=== PATIENT | male | born 1970 | race Caucasian/White ===

== ENCOUNTER 2020-09-04 10:47 | Observation (INO) | payer BC ==
[~2020-09-04] VITALS: Ht 180.3 cm; Wt 120.0 kg
[~2020-09-04 10:47] MED LIST: ALEVE 220MG220 MG PO; HYZAAR 25 MG-101 TAB PO; PRILOSEC 20MG20 MG PO; TOPROL XL 25MG25 MG PO; ZOCOR 40MG40 MG PO
[2020-09-04 11:41] LABS: BASO % 0.3 % (0.0-2.0); EOS # 0.1 (0.0-0.7); EOS % 0.7 % (0-4.0); GRAN # 4.9 (1.4-6.5); GRAN % 65.6 % (42.2-75.2); HEMATOCRIT 44.5 % (42.0-52.0); HEMOGLOBIN 15.6 g/dl (13.5-18.0); LYMPH # 1.4 (1.2-3.4); LYMPH % 18.9 % (20.0-51.0); MEAN CELL VOLUME 87 fl (80.0-100.0); MEAN CORPUSCULAR HEMOGLOBIN 31 pg (27.0-31.0); MEAN CORPUSCULAR HGB CONC 35 g/dl (33.0-37.0); MEAN PLATELET VOLUME 9.2 fl (7.4-10.4); MONO # 1.1 (0.1-0.6); MONO % 14.2 % (1.7-9.3); PLATELET COUNT 252 K/mm3 (130-400); RED BLOOD COUNT 5.12 M/mm3 (4.20-5.60); REDCELL DISTRIBUTION WIDTH-CV 12.8 % (11.5-14.5)
[2020-09-04 12:02] LABS: ALANINE AMINOTRANSFERASE 13 U/L (4-49); ALBUMIN 4.6 gm/dL (3.5-5.0); ALKALINE PHOSPHATASE 69 U/L (50-136); ANION GAP 8 mmol/L (7-16); AST,SGOT 34 U/L (15-37); BILIRUBIN,TOTAL 0.9 mg/dL (0.0-1.0); BLOOD UREA NITROGEN 13 mg/dL (9-20); C-REACTIVE PROTEIN 3.9 mg/dL (0.0-0.9); CALCIUM 9.4 mg/dL (8.4-10.2); CARBON DIOXIDE 33 mmol/L (22-30); CHLORIDE 94 mmol/L (98-107); CREATININE, serum 0.67 (0.66-1.25); GLUCOSE 118 mg/dL (74-106); LIPASE 47 U/L (23-300); POTASSIUM 3.4 mmol/L (3.4-5.0); SODIUM 135 mmol/L (137-145); TOTAL PROTEIN 8.3 gm/dL (6.4-8.2)
[2020-09-04 12:16] LABS: TROPONIN-I < 0.012 ng/mL (0.000-0.035)
[2020-09-04 12:37] LABS: COLLECTION METHOD CLEAN CATCH
[2020-09-04 13:37] LABS: MUCOUS Present /lpf; PH 8 (5-8); SQUAMOUS EPITHELIAL None Seen /hpf; URINE APPEARANCE Clear; URINE BACTERIA None Seen /hpf; URINE BILIRUBIN Negative (NEGATIVE); URINE BLOOD Negative (NEGATIVE); URINE COLOR Yellow; URINE GLUCOSE Negative (NEGATIVE); URINE KETONE Negative (NEGATIVE); URINE LEUKOCYTE ESTERASE Negative (NEGATIVE); URINE NITRATE Negative (NEGATIVE); URINE PROTEIN(semi-quant) Negative (NEGATIVE); URINE RBC 0-2 /hpf; URINE UROBILINOGEN Negative (NEGATIVE)
[2020-09-04] MEDS ORDERED: TOPROL XL 50MG50 MG PO (17:36)
[2020-09-04] MEDS ORDERED: RESTASIS MULTI5.5 ML OP (17:38)
[2020-09-04 19:11] VITALS: BP 125/74; PULSE 80; TEMP 98.1
--- NOTE | 2020-09-04 20:00 | NUR ---
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 Assessment complete. A&Ox3. VS stable. Denies pain/nausea/shortness of breath. States he feels much better than he has in days. Tolerated his clear liquid diet. Plan of care discussed for pain control/antiemetics as needed. Bowel sounds are active all quads. Denies questions/concerns. Call light in reach. Will monitor.
[2020-09-04 23:36] VITALS: BP 118/56; PULSE 91; TEMP 99.7
--- NOTE | 2020-09-05 00:10 | NUR ---
Up to bathroom at this time. Small loose dark green stool. States he is passing gas now. Denies pain/nausea. Call light in reach. Will monitor.
--- NOTE | 2020-09-05 02:45 | NUR ---
Report from RT O2 saturation 78% on room air-went up to 94% after waking up more. RT states refusing O2 stating he cant wear anything on his face.
[2020-09-05 03:50] VITALS: BP 134/65; PULSE 94; TEMP 98.4
--- NOTE | 2020-09-05 03:55 | NUR ---
Report from PCT of O2 sat of 89% on room air. This nurse discussed importance of keeping O2 saturations up. States he has been told in past that he did have sleep apnea but cant wear things on his face during sleep. Discussed a nasal cannula and willing to try. Will attempt to place on O2@2l/NC.
--- NOTE | 2020-09-05 06:26 | NUR ---
WHEN CHECKING PATIENTS SPO2 WHILE SLEEPING WAS FOUND TO BE 76%. I WOKE PATIENT UP AND THEIR SPO2 CAME BACK UP TO 94%. WHEN I EXPLAINED TO PATIENT I WAS GOING TO PLACE THEM ON OXYGEN, THEY WERE VERY ADIMENT THAT THEY WANTED NOTHING ON THEIR FACE. NO MASK OR NASAL CANNULA OF THEIR FACE, BECAUSE THEY COULD NOT SLEEP THAT WAY. SPOKE WITH RN AND CITY BUS DRIVER ABOUT PATIENT REFUSING OXYGEN WHILE SLEEPING, I PLACED NASAL CANNULA IN ROOM AND SHE SAID SHE WOULD TRY TO TALK TO HIM ABOUT WEARING IT. ALSO WHEN I CAME TO CHECK AGAIN ON PATIENT HE WAS AWAKE AND ALERT IN BED.
[2020-09-05 07:17] LABS: BASO % 0.2 % (0.0-2.0); EOS # 0.1 (0.0-0.7); GRAN # 3.2 (1.4-6.5); HEMATOCRIT 37.3 % (42.0-52.0); LYMPH # 1.4 (1.2-3.4); LYMPH % 24.5 % (20.0-51.0); MEAN CELL VOLUME 89 fl (80.0-100.0); MEAN CORPUSCULAR HEMOGLOBIN 30 pg (27.0-31.0); MEAN CORPUSCULAR HGB CONC 34 g/dl (33.0-37.0); MEAN PLATELET VOLUME 9.5 fl (7.4-10.4); MONO # 0.8 (0.1-0.6); MONO % 15.1 % (1.7-9.3); PLATELET COUNT 220 K/mm3 (130-400); RED BLOOD COUNT 4.21 M/mm3 (4.20-5.60); REDCELL DISTRIBUTION WIDTH-CV 12.9 % (11.5-14.5)
[2020-09-05 07:25] LABS: HEMOGLOBIN 12.7 g/dl (13.5-18.0)
[2020-09-05 07:30] LABS: ALBUMIN 3.7 gm/dL (3.5-5.0); BILIRUBIN,TOTAL 0.7 mg/dL (0.0-1.0); CALCIUM 8.9 mg/dL (8.4-10.2); CREATININE, serum 0.74 (0.66-1.25); POTASSIUM 3.5 mmol/L (3.4-5.0); TOTAL PROTEIN 6.8 gm/dL (6.4-8.2)
[2020-09-05 07:47] VITALS: BP 129/81; PULSE 89; TEMP 98.4
--- NOTE | 2020-09-05 09:31 | NUR ---
Patient standing at bedside independently at this time. Patient reports pain is controlled and denies nausea or vomiting. Patient is tolerating clear liquids well. Bowel sounds are active x4 and abdomen is soft. Patient denies further needs at this time, call light within reach.
--- NOTE | 2020-09-05 12:26 | NUR ---
Patient resting in bed at this time and requests a PRN "mild" pain medication for pain rated 3/10 in his abdomen. Patient reports he is feeling an increase in bloating. Abdomen remains rounded and soft to palpation, no acute pain when palpated. Patient reports having a bowel movement, upon inspection it is loose and dark. Patient continues to deny nausea or episodes of emesis. Patient denies further needs at this time, call light within reach.
[2020-09-05 12:40] VITALS: BP 119/65; PULSE 85; TEMP 98.6
--- NOTE | 2020-09-05 14:38 | NUR ---
Grounds Cleaner met with patient and his , Kristina (ph#[phone]) to discuss discharge planning. Patient lives in [place], [place] with his and sees Dr. Carrizales for primary care. Patient has medications mailed to him by [facility] and also uses [facility] or [facility] as needed. Patient does not use any DME and is independent with ADLS. Patient does not have Advance Directives but was interested in completing DPOA-HC. SW assisted patient in completing DPOA-HC and he chose to designate his , Kristina and his sister, René. SW provided orignial and copies to patient then placed a copy on patient's chart. Patient plans on returning home at discharge with his providing transportation. No needs identified at this time.
--- NOTE | 2020-09-05 16:28 | NUR ---
Patient resting in bed at this time. Patient is alert and oriented, answers questions appropriately. Patient has had several bowel movements today, they are loose but not liquid; color began very dark but has progressively lightened. Patient has requested PRN pain medication and is complaining of feeling 'more bloated'. Bowel sounds remain active and patient denies nausea. Patient is encouraged to ambulate in hallways. Patient denies further needs, call light within reach.
[2020-09-05 16:31] VITALS: BP 130/81; PULSE 92; TEMP 97.9
--- NOTE | 2020-09-05 17:39 | NUR ---
Patient resting in bedside recliner at this time. Patient remains alert and oriented. Patient given PRN pain medication per request, patient also encouraged again to ambulate in the halls as frequently as he can tolerate, patient verbalized understanding, call light within reach.
[2020-09-05 19:56] VITALS: BP 129/75; PULSE 85; TEMP 98.7
--- NOTE | 2020-09-05 20:00 | NUR ---
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 Assessment complete. A&Ox3. VS stable. Denies shortness of breath. C/O pain to abdomen-rating pain 8/10 on pain scale-described as constant pressure. Also c/o nausea. Zofran/dilaudid given per dr order. Bowel sounds hypoactive in all quads. Abdomen noted to be distended and firm. Instructed to ambulate. +flatus/+BM. Denies questions at this time. Call light in reach. Will monitor.
--- NOTE | 2020-09-05 23:00 | NUR ---
Called with c/o pain to abdomen-rating pain 8/10 on pain scale-described as constant throbbing and pressure. Dilaudid given per dr order. Will monitor.
[2020-09-06 00:20] VITALS: BP 112/69; PULSE 88; TEMP 98.2
[2020-09-06 03:28] VITALS: BP 111/64; PULSE 93; TEMP 98.7
--- NOTE | 2020-09-06 03:43 | NUR ---
Resting in bed. Denies nausea/shortness of breath. Rating pain 2/10 to abdomen-described as intermittent ache. Denies need for intervention. States he has passed some more gas and feels less distended. No current needs. Call light in reach. Will monitor.
--- NOTE | 2020-09-06 07:00 | NUR ---
Patient up ambulating in halls, passing gas, had medium loose BM. Denies pain or further needs at this time
--- NOTE | 2020-09-06 08:00 | NUR ---
Patient sitting up in bed. Alert and oriented x 3. Spouse at bedside. Patient indpendent in room. Having BMs and passing gas. States he feels much better this morning and would like to go home. Denies pain or further needs at this time.
[2020-09-06 08:07] VITALS: BP 119/66; PULSE 95; TEMP 98.8
[2020-09-06] MEDS ORDERED: ULTRAM 50MG TAB50 MG PO (08:55)
--- NOTE | 2020-09-06 09:55 | NUR ---
Discharge education provided to patient. Educated on new medications and medication safety. Educated on low fiber diet. All questions answered. IV discontinued, catheter tip intact. Denies pain or further needs at this time. Patient ambulated out with surgical staff and family.
== END 2020-09-06 10:00 | disposition home or self-care (01) ==
LOC: COL.ER 10:47 → SURG 14:06
PROVIDERS: Emergency Medicine; ADMIT Surgery
DX: R10.9 Unspecified abdominal pain (principal); K76.0 Fatty (change of) liver, not elsewhere classified; E66.9 Obesity, unspecified; E78.5 Hyperlipidemia, unspecified; I10 Essential (primary) hypertension; Z87.11 Personal history of peptic ulcer disease; Z86.010 Personal history of colon polyps; Z88.1 Allergy status to other antibiotic agents
CPT/HCPCS: C9113; G0378; J1170; J2270; J2405; J7030; J7120; Q9967

== ENCOUNTER 2020-09-09 11:07 | Inpatient (IN) | payer BC ==
[~2020-09-09] VITALS: Ht 177.8 cm; Wt 120.6 kg
[~2020-09-09 11:07] MED LIST changes: +RESTASIS MULTI5.5 ML OP; +TOPROL XL 50MG50 MG PO; +ULTRAM 50MG TAB50 MG PO
[2020-09-09 12:06] LABS: BASO # 0.1 (0.0-0.2); BASO % 0.7 % (0.0-2.0); EOS # 0.1 (0.0-0.7); EOS % 0.6 % (0-4.0); GRAN # 10.9 (1.4-6.5); GRAN % 76.4 % (42.2-75.2); HEMATOCRIT 41.5 % (42.0-52.0); HEMOGLOBIN 14.9 g/dl (13.5-18.0); LYMPH # 1.7 (1.2-3.4); MEAN CELL VOLUME 85 fl (80.0-100.0); MEAN CORPUSCULAR HEMOGLOBIN 31 pg (27.0-31.0); MEAN CORPUSCULAR HGB CONC 36 g/dl (33.0-37.0); MONO # 1.4 (0.1-0.6); MONO % 9.6 % (1.7-9.3); PLATELET COUNT 378 K/mm3 (130-400); RED BLOOD COUNT 4.87 M/mm3 (4.20-5.60); REDCELL DISTRIBUTION WIDTH-CV 12.5 % (11.5-14.5)
[2020-09-09 12:23] LABS: ALBUMIN 4.7 gm/dL (3.5-5.0); BILIRUBIN,TOTAL 0.9 mg/dL (0.0-1.0); C-REACTIVE PROTEIN 6.7 mg/dL (0.0-0.9); CALCIUM 9.5 mg/dL (8.4-10.2); CREATININE, serum 2.49 (0.66-1.25); POTASSIUM 3.5 mmol/L (3.4-5.0); TOTAL PROTEIN 8.8 gm/dL (6.4-8.2)
[2020-09-09 14:34] VITALS: BP 106/74; PULSE 79; TEMP 97.7
[2020-09-09 16:00] VITALS: BP 148/75; PULSE 103; TEMP 98
[2020-09-09 16:38] VITALS: BP 117/57; PULSE 84; TEMP 97.8
[2020-09-09 19:36] VITALS: BP 109/46; PULSE 92; TEMP 98.5
--- NOTE | 2020-09-09 20:00 | NUR ---
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 Assessment complete. A&Ox3. VS stable-slight hypotension of 109/43. HS dose of metoprolol held due to this. Denies pain/nausea/shortness of breath. States he is just very tired. Plan of care discussed for this shift to include sending stool specimen/HS meds/pain and nausea meds/bowel rest/calling for needs. Verbalizes understanding. Call light in reach. Will monitor.
--- NOTE | 2020-09-09 20:07 | NUR ---
PATIENT ADMITTED FROM ED, ARRIVED AROUND 1430. DENIED PAIN, IS ON A CLEAR LIQUID DIET. PATIENT VOIDING AFTER NS GIVEN VIA IV IN LEFT HAND. PATIENT RESTING IN BED AT BEDSIDE SHIFT REPORT.
[2020-09-09 22:38] LABS: COLLECTION METHOD CLEAN CATCH
[2020-09-09 22:44] LABS: PH 6 (5-8); SQUAMOUS EPITHELIAL 0-2 /hpf; URINE APPEARANCE Clear; URINE BACTERIA None Seen /hpf; URINE BILIRUBIN Negative (NEGATIVE); URINE BLOOD Negative (NEGATIVE); URINE COLOR Yellow; URINE GLUCOSE Negative (NEGATIVE); URINE KETONE Trace (NEGATIVE); URINE LEUKOCYTE ESTERASE Negative (NEGATIVE); URINE NITRATE Negative (NEGATIVE); URINE PROTEIN(semi-quant) Negative (NEGATIVE); URINE RBC 0-2 /hpf; URINE UROBILINOGEN Negative (NEGATIVE)
[2020-09-10] VITALS (7 sets, daily range): BP systolic 102–133; BP diastolic 48–79; PULSE 80–100; TEMP 98–98.6
--- NOTE | 2020-09-10 02:30 | NUR ---
Up watching TV. Denies nausea/pain/shortness of breath. States he is starting to get hungry. Given another popsicle. NO c/o at this time. Will monitor.
--- NOTE | 2020-09-10 05:27 | NUR ---
Slept well this shift. Denied shortness of breath/nausea/pain. +BM/+flatus. VS remained stable. Tolerated clear liquids. Call light in reach. Will monitor.
[2020-09-10 08:26] LABS: ALBUMIN 4.1 gm/dL (3.5-5.0); BILIRUBIN,TOTAL 0.6 mg/dL (0.0-1.0); CALCIUM 8.8 mg/dL (8.4-10.2); CREATININE, serum 0.99 (0.66-1.25); POTASSIUM 3.4 mmol/L (3.4-5.0); TOTAL PROTEIN 7.7 gm/dL (6.4-8.2)
[2020-09-10 08:28] LABS: BASO # 0.1 (0.0-0.2); BASO % 0.4 % (0.0-2.0); EOS # 0.1 (0.0-0.7); EOS % 0.7 % (0-4.0); GRAN # 10.4 (1.4-6.5); GRAN % 75.9 % (42.2-75.2); HEMATOCRIT 38.3 % (42.0-52.0); HEMOGLOBIN 13.4 g/dl (13.5-18.0); LYMPH # 1.9 (1.2-3.4); MEAN CELL VOLUME 86 fl (80.0-100.0); MEAN CORPUSCULAR HEMOGLOBIN 30 pg (27.0-31.0); MEAN CORPUSCULAR HGB CONC 35 g/dl (33.0-37.0); MEAN PLATELET VOLUME 8.9 fl (7.4-10.4); MONO # 1.1 (0.1-0.6); MONO % 8.2 % (1.7-9.3); PLATELET COUNT 337 K/mm3 (130-400); RED BLOOD COUNT 4.45 M/mm3 (4.20-5.60); REDCELL DISTRIBUTION WIDTH-CV 12.7 % (11.5-14.5)
--- NOTE | 2020-09-10 09:36 | NUR ---
Initial visit; Patient thanked Lead Applications Developer for looking in on him and offering God's blessings.
--- NOTE | 2020-09-10 10:12 | NUR ---
JONATHAN met with the patient and his , Korina (ph#[phone]), to discuss discharge plan. The patient lives in [place] with his and two children. He reports independence with ADLs and has a cane available, if needed. The patient's PCP is Dr. Regino Brar and he receives his medications at [facility]. He reports no difficulties obtaining his meds. The patient's DPOA-HC is in EMR and it designates his . The patient plans to return home with his family upon discharge. No additional needs at this time.
--- NOTE | 2020-09-10 12:30 | NUR ---
Dr Munoz spoke with patient about his plan for the day. Denies pain and nausea. Patient wanted tele off, Dr Munoz ok with that. His is still at bedside. Diet has been advanced to full liquids. Patient is taking it slow. No other changes at this time. Call light within reach.
--- NOTE | 2020-09-10 18:24 | NUR ---
Patient stated he was having some bloating after eating more liquids. Encouraged him to get up and walk in the hallways more. Patient denies nausea and pain. He has only had a jello and some tea. No other changes at this time. Call light within reach.
--- NOTE | 2020-09-10 21:25 | NUR ---
Pt assessment completed an documented. Pt currently in bed watching television. Pt alert and oriented x4. Denies pain. Pt states doctor told him today he could eat pudding. PT tolerated pudding with no complications. IVF infusing per orders to left hand. Pt denies any needs/conerns. Will continue to monitor
[2020-09-11 03:46] VITALS: BP 114/60; PULSE 80; TEMP 98.4
--- NOTE | 2020-09-11 06:05 | NUR ---
Pt rested well overnight. No reports of pain. IVF infusing per orders. Pt has been NPO since midnight. Pt denies any otehr needs/concerns at this time. Call light within reach.
--- NOTE | 2020-09-11 06:55 | NUR ---
Report given to CHAYA Ross and CHAYA Grove
[2020-09-11 07:24] VITALS: BP 119/76; PULSE 81; TEMP 97.8
--- NOTE | 2020-09-11 09:21 | NUR ---
Patient resting in bed. Patient reports that he has not been voiding much. Bladder scan was 70 mls and he denies any pressure or discomfort. Will continue to monitor.
[2020-09-11 09:52] LABS: BASO # 0.1 (0.0-0.2); BASO % 0.4 % (0.0-2.0); EOS # 0.1 (0.0-0.7); EOS % 0.5 % (0-4.0); GRAN # 9.4 (1.4-6.5); GRAN % 78.6 % (42.2-75.2); HEMATOCRIT 38.6 % (42.0-52.0); HEMOGLOBIN 13.7 g/dl (13.5-18.0); LYMPH # 1.5 (1.2-3.4); LYMPH % 12.4 % (20.0-51.0); MEAN CELL VOLUME 87 fl (80.0-100.0); MEAN CORPUSCULAR HEMOGLOBIN 31 pg (27.0-31.0); MEAN CORPUSCULAR HGB CONC 36 g/dl (33.0-37.0); MEAN PLATELET VOLUME 8.8 fl (7.4-10.4); MONO # 0.9 (0.1-0.6); MONO % 7.3 % (1.7-9.3); PLATELET COUNT 328 K/mm3 (130-400); RED BLOOD COUNT 4.46 M/mm3 (4.20-5.60); REDCELL DISTRIBUTION WIDTH-CV 12.7 % (11.5-14.5)
[2020-09-11 10:02] LABS: ALBUMIN 4.2 gm/dL (3.5-5.0); BILIRUBIN,TOTAL 0.6 mg/dL (0.0-1.0); CALCIUM 9.5 mg/dL (8.4-10.2); CREATININE, serum 0.75 (0.66-1.25); POTASSIUM 3.5 mmol/L (3.4-5.0)
--- NOTE | 2020-09-11 11:49 | NUR ---
Patient's IV would not flush when trying to connect fluids. IV was discontinued and a new IV was placed in the Left wrist. Fluids are infusing now.
[2020-09-11 12:14] VITALS: BP 124/70; PULSE 99; TEMP 98.4
--- NOTE | 2020-09-11 15:29 | NUR ---
Patient reports more bloating with the full liquid diet than he was having with the clear liquid diet. He denies having worsening pain. Will continue to monitor.
[2020-09-11 15:51] VITALS: BP 113/75; PULSE 96; TEMP 98.4
--- NOTE | 2020-09-11 20:00 | NUR ---
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 Assessment complete. A&Ox3. VS stable. Denies nausea/shortness of breath. Rating pain 3/10 to abdomen-described as intermittent pressure-denies need for intervention. States he is having increased heartburn. Plan of care discussed for this shift to include HS meds/pain meds/calling for needs. Verbalizes understanding/denies questions/concerns. Call light in reach. will monitor.
[2020-09-11 20:06] VITALS: BP 124/72; PULSE 96; TEMP 99.9
[2020-09-11 23:55] VITALS: BP 122/75; PULSE 91; TEMP 98.3
--- NOTE | 2020-09-12 02:51 | NUR ---
Could not tolerate full liquid diet. States diet made him feel "miserable and bloated." Order placed for clear liquid diet for this AM. IV fluids continue to infuse at 100mls/hr to left wrist IV. Has not needed pain medications or nausea medications this shift. Denies needs. Call light in reach. Will monitor.
[2020-09-12 04:12] VITALS: BP 121/67; PULSE 86; TEMP 98.3
--- NOTE | 2020-09-12 05:10 | NUR ---
Up ambulating in hallway. States he feels much better this AM-states the bloating he experienced yesterday is gone. Had no c/o pain/nausea/shortness of breath. Call light in reach. Will monitor.
--- NOTE | 2020-09-12 06:14 | NUR ---
States he had a x large liquid BM green/severino in color. States he passed a very large amount of gas as well.
[2020-09-12 06:47] LABS: BASO # 0.1 (0.0-0.2); BASO % 0.5 % (0.0-2.0); EOS # 0.1 (0.0-0.7); GRAN # 7.7 (1.4-6.5); GRAN % 72.9 % (42.2-75.2); HEMOGLOBIN 12.3 g/dl (13.5-18.0); LYMPH # 1.6 (1.2-3.4); LYMPH % 15.1 % (20.0-51.0); MEAN CELL VOLUME 87 fl (80.0-100.0); MEAN CORPUSCULAR HEMOGLOBIN 30 pg (27.0-31.0); MEAN CORPUSCULAR HGB CONC 34 g/dl (33.0-37.0); MEAN PLATELET VOLUME 8.8 fl (7.4-10.4); MONO % 9.4 % (1.7-9.3); PLATELET COUNT 309 K/mm3 (130-400); RED BLOOD COUNT 4.13 M/mm3 (4.20-5.60); REDCELL DISTRIBUTION WIDTH-CV 12.8 % (11.5-14.5)
[2020-09-12 06:48] LABS: HEMATOCRIT 36.1 % (42.0-52.0)
[2020-09-12 07:06] LABS: ALBUMIN 3.6 gm/dL (3.5-5.0); BILIRUBIN,TOTAL 0.4 mg/dL (0.0-1.0); CALCIUM 8.8 mg/dL (8.4-10.2); CREATININE, serum 0.82 (0.66-1.25); POTASSIUM 3.5 mmol/L (3.4-5.0); TOTAL PROTEIN 6.9 gm/dL (6.4-8.2)
[2020-09-12 07:22] VITALS: BP 119/70; PULSE 88; TEMP 98.6
--- NOTE | 2020-09-12 08:00 | NUR ---
Patient in bed resting. Alert and oriented x 3. Assessment complete. States he has been having BMs and passing gas. Encouraged patient to increase activity. Denies pain at this time, states he feels better than he did yesterday. Denies further needs at this time.
--- NOTE | 2020-09-12 08:39 | NUR ---
Patient up ambulating in halls /
[2020-09-12 11:43] VITALS: BP 125/63; PULSE 81; TEMP 98.1
[2020-09-12 17:23] VITALS: BP 138/78; PULSE 95; TEMP 98.1
--- NOTE | 2020-09-12 17:50 | NUR ---
Patient has done well throughout the day. Has been up ambulating in halls independently throughout the day. States he feels better today, stools not as loose as they have been previous days. Tolerating diet without complications. Spouse at bedside throughout the day. Denies further needs at this time. Will report off to production supervisor off shift.
[2020-09-12 19:48] VITALS: BP 110/62; PULSE 87; TEMP 98.2
--- NOTE | 2020-09-12 20:30 | NUR ---
Received report from CHAYA Brown. Pt currently resting in bed and has his call light within reach.
--- NOTE | 2020-09-12 21:00 | NUR ---
Pt currently resting in bed. Pt did have some complaints of gas pains. Pt took a walk and came back and wer tried a warm blanket across his abdomen. Pt requested Tylenol. Dr. Llamas was contacted to see if he was ok with the pt having Tylenol PRN for pain. After taking the Tylenol pt stated that he feels much better. He currently has his call light within reach.
[2020-09-13 01:47] VITALS: BP 125/71; PULSE 85; TEMP 98.3
[2020-09-13 03:57] VITALS: BP 119/66; PULSE 80; TEMP 97.9
--- NOTE | 2020-09-13 07:08 | NUR ---
Reported off to CHAYA Das. Pt has his call light within reach.
[2020-09-13 07:43] VITALS: BP 140/71; PULSE 87; TEMP 98.2
--- NOTE | 2020-09-13 08:00 | NUR ---
Patient doing well this morning, alert and oriented x 3. Assessment complete. Denies pain at this time. States he continues to have "normal" BMs, they are no longer loose; now having formed BMs. Tolerating diet without complications. Denies further needs at this time .
--- NOTE | 2020-09-13 09:40 | NUR ---
Discharge education provided to patient. Educated on when to call provider and low fiber diet. All questions answered. Denies pain and further needs at this time. INT to left forarm/wrist discotinued, catheter tip intact. Patient ambulated out with surgical staff, spouse at bedside.
== END 2020-09-13 09:40 | disposition home or self-care (01) | DRG 389 ==
LOC: COL.ER 11:07 → SURG 13:20
PROVIDERS: Family Medicine; ADMIT Surgery
DX: K56.600 Partial intestinal obstruction, unspecified as to cause (principal); N17.9 Acute kidney failure, unspecified; E66.9 Obesity, unspecified; K52.9 Noninfective gastroenteritis and colitis, unspecified; E78.5 Hyperlipidemia, unspecified; I10 Essential (primary) hypertension; Z88.2 Allergy status to sulfonamides; Z68.38 Body mass index [BMI] 38.0-38.9, adult
CPT/HCPCS: A9284; G0378; J2270; J2405; J7030; J7120

== ENCOUNTER → 2021-03-26 | Outpatient (CLI) | payer BC | LOC: COL.RAD 06:57 | DX: K44.9 Diaphragmatic hernia without obstruction or gangrene (principal); Z87.19 Personal history of other diseases of the digestive system | CPT/HCPCS: Q9967 ==